=== PATIENT | female | born 1965 | race Caucasian/White ===

== ENCOUNTER 2017-09-12 23:52 | Emergency (ER) | payer BC ==
[2017-09-13 00:18] LABS: HCT 37.2 % (34.0-46.0); HGB 13.2 gm/dL (11.4-16.0); MCH 33.3 pg (25.0-35.0); MCHC 35.5 g/dL (31.0-37.0); MCV 93.6 fL (80.0-100.0); Mean Platelet Volume 6.6; Platelet Count 197 k/uL (150-450); RBC 3.97 m/uL (3.80-5.40); RDW 12.7 % (11.5-15.5); WBC 5.5 k/uL (3.8-10.6)
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
[2017-09-13 00:32] LABS: Eosinophils # (M) 0.17 k/uL (0-0.7); Lymphocytes # (M) 3.63 k/uL (1.0-4.8); Monocytes # (M) 0.33 k/uL (0-1.0); Neutrophils # (M) 1.38 k/uL (1.3-7.7); Neutrophils % (M) 25 %; Nucleated Red Blood Cells 0 /100 WBC (0-0); Total Cells Counted 100
[2017-09-13 00:33] LABS: Anion Gap 13 mmol/L; Blood Urea Nitrogen 13 mg/dL (7-17); Carbon Dioxide 23 mmol/L (22-30); Chloride 106 mmol/L (98-107); Creatine Kinase 69 U/L (30-135); Glucose 111 mg/dL (74-99); Potassium 3.6 mmol/L (3.5-5.1); Sodium 142 mmol/L (137-145)
[2017-09-13 00:37] LABS: Appearance,Urine Clear (Clear); Bacteria,Urine Rare /hpf; Bilirubin,Urine Negative (Negative); Blood,Urine Trace (Negative); Color,Urine Light Yellow; Glucose,Urine (UA) Negative (Negative); Hyaline Casts,Urine 1 /lpf (0-2); Ketones,Urine Negative (Negative); Leukocyte Esterase,Urine Negative (Negative); Mucus,Urine Rare /hpf; Nitrite,Urine Negative (Negative); Protein,Urine Negative (Negative); RBC,Urine 1 /hpf (0-5); Specific Gravity,Urine 1.007 (1.001-1.035); Squamous Epithelial Cell,Urine <1 /hpf (0-4); Urobilinogen,Urine <2.0 mg/dL (<2.0); WBC,Urine 1 /hpf (0-5)
[2017-09-13 00:45] LABS: Glucose,Whole Blood 120 mg/dL (75-99)
[2017-09-13 01:30] VITALS: RESP 16
[2017-09-13 02:35] VITALS: BP 176/98; PULSE 77; TEMP 98.4
== END 2017-09-13 02:35 | disposition home or self-care (01) ==
LOC: EC 23:52
DX: T75.4XXA Electrocution, initial encounter (principal); I10 Essential (primary) hypertension; Z88.0 Allergy status to penicillin; Z88.1 Allergy status to other antibiotic agents; Z88.2 Allergy status to sulfonamides; Z79.899 Other long term (current) drug therapy; W86.8XXA Exposure to other electric current, initial encounter; Y92.028 Other place in mobile home as the place of occurrence of the external cause
CPT/HCPCS: 36415; 80048; 81001; 82550; 84484; 85025; 93005; 99285